=== PATIENT | female | born 1990 | race Caucasian/White ===

== ENCOUNTER 2018-09-07 00:27 | Inpatient (IN) | payer MEDICAID ==
[~2018-09-07] VITALS: Ht 165.1 cm; Wt 81.6 kg
[2018-09-07] MEDS ORDERED: SODIUM CHLORIDE 0.9% 1,000 ML IV ONE ×2 (01:43→03:00)
[2018-09-07] MEDS ORDERED: ONDANSETRON HCL 4MG/2ML INJ IV STA (01:43)
[2018-09-07] MEDS ORDERED: MORPHINE SULFATE 10 MG/ML CPJ IV ONE (01:45)
[2018-09-07] MEDS ORDERED: DIPHENHYDRAMINE 50MG/ML VIAL IV ONE (03:00)
[2018-09-07] MEDS ORDERED: PANTOPRAZOLE SODIUM 40 MG/VIAL IV ONE (03:30)
[2018-09-07] MEDS ORDERED: METOCLOPRAMIDE HCL 10MG/2ML VIAL IV ONE (03:30)
[2018-09-07 04:10] LABS: HEMATOCRIT. 41.5 % (36.0-48.0); HEMOGLOBIN. 12.5 g/dL (12.0-16.0); MEAN CORPUSCULAR HEMOGLOBIN 30.1 pg (28.0-32.0); MEAN CORPUSCULAR VOLUME 100.2 fL (81.0-99.0); MEAN PLATELET VOLUME 7.7 fl (7.4-10.4); PLATELET 424 x1000/uL (130-400); RED BLOOD CELL COUNT 4.15 mill/uL (4.2-5.4); RED CELL DISTRIBUTION WIDTH 14.7 % (11.6-14.6)
[2018-09-07 04:16] LABS: CHLORIDE 99 mEq/L (98-107)
[2018-09-07 04:20] LABS: PROTHROMBIN TIME 10.1 sec (9.1-11.1)
[2018-09-07 04:41] LABS: HCG SCREEN NEGATIVE
[2018-09-07] MEDS ORDERED: INSULIN REGULAR (DRIP) 100 UNITS in SODIUM CHLORIDE 0.9% 100 ML IV ONE (04:48)
[2018-09-07 05:07] LABS: PHOSPHORUS 3.5 mg/dL (2.5-4.9)
[2018-09-07 06:59] LABS: PLATELET ESTIMATE SLIGHTLY INCREASED
[2018-09-07] MEDS ORDERED: INSULIN REGULAR (DRIP) 100 UNITS in SODIUM CHLORIDE 0.9% 100 ML IV SCH (12:32)
[2018-09-07] MEDS ORDERED: IPRATROPIUM/ALBUTEROL 0.5-3(2.5)MG/3ML NEB INH PRN (12:45)
[2018-09-07] MEDS ORDERED: ZOLPIDEM TARTRATE 5MG TABLET PO PRN (12:45)
[2018-09-07] MEDS ORDERED: DOCUSATE SODIUM 100MG CAPSULE PO PRN (12:45)
[2018-09-07] MEDS ORDERED: ACETAMINOPHEN 325MG TABLET PO PRN (12:45)
[2018-09-07] MEDS ORDERED: LORAZEPAM 1MG TABLET PO PRN (12:45)
[2018-09-07] MEDS ORDERED: BLOOD SUGAR DIAGNOSTIC STRIP TEST SCH (12:45)
[2018-09-07] MEDS ORDERED: NA PHOS,M-B/NA PHOS,DI-BA ENEMA 118ML PR PRN (12:45)
[2018-09-07] MEDS ORDERED: CLONIDINE 0.1MG TABLET PO PRN (12:45)
[2018-09-07] MEDS ORDERED: DEXTROSE 50% WATER 50ML SYRINGE IV PRN ×4 (12:45→21:30)
[2018-09-07] MEDS ORDERED: NITROGLYCERIN 0.4MG TABLET SL SL PRN (12:45)
[2018-09-07] MEDS ORDERED: ONDANSETRON HCL 4MG/2ML INJ IV PRN (12:45)
[2018-09-07] MEDS ORDERED: GUAIFENESIN 200MG/10ML SUGAR FREE UDC PO PRN (12:45)
[2018-09-07] MEDS ORDERED: MAGNESIUM/ALUMINUM HYDROXIDE/SIMETHICONE 30ML UDC PO PRN (12:45)
[2018-09-07] MEDS ORDERED: KETOROLAC 15MG/ML VIAL IV PRN (12:45)
[2018-09-07 16:07] LABS: COLOR URINE YELLOW (YELLOW); KETONES URINE 4+ (NEGATIVE); LEUKOCYTE ESTERASE URINE NEGATIVE (NEGATIVE); NITRITE URINE NEGATIVE (NEGATIVE); OCCULT BLOOD URINE TRACE (NEGATIVE); PH URINE 5.5 (4.5-8.0); PROTEIN URINE 1+ (NEGATIVE); SPECIFIC GRAVITY URINE 1.017 (1.005-1.030); UROBILINOGEN URINE 0.2 E.U./dL (0.2-1.0)
[2018-09-07 16:10] LABS: *AMPHETAMINES SCREEN URINE NEGATIVE (NEGATIVE)
[2018-09-07 16:11] LABS: *BARBITURATES SCREEN URINE NEGATIVE (NEGATIVE); *BENZODIAZEPINES SCREEN URINE NEGATIVE (NEGATIVE); *COCAINE SCREEN URINE NEGATIVE (NEGATIVE); METHADONE URINE SCREEN NEGATIVE (NEGATIVE); PHENCYCLIDINE URINE SCREEN NEGATIVE (NEGATIVE)
[2018-09-07 16:11] LABS: CLARITY URINE CLEAR (CLEAR)
[2018-09-07 16:12] LABS: CANNABINOID URINE SCREEN NEGATIVE (NEGATIVE)
[2018-09-07 16:17] LABS: OPIATES URINE SCREEN PRESUMTIVE POSITIVE (NEGATIVE)
[2018-09-07 17:05] LABS: *AMPHETAMINES SCREEN URINE NEGATIVE (NEGATIVE); *BARBITURATES SCREEN URINE NEGATIVE (NEGATIVE); *BENZODIAZEPINES SCREEN URINE NEGATIVE (NEGATIVE)
[2018-09-07 17:06] LABS: *COCAINE SCREEN URINE NEGATIVE (NEGATIVE); CANNABINOID URINE SCREEN NEGATIVE (NEGATIVE); METHADONE URINE SCREEN NEGATIVE (NEGATIVE); OPIATES URINE SCREEN PRESUMTIVE POSITIVE (NEGATIVE); PHENCYCLIDINE URINE SCREEN NEGATIVE (NEGATIVE)
[2018-09-07 21:00] VITALS: BP 125/75
[2018-09-07 21:00] LABS: CHLORIDE 112 mEq/L (98-107)
[2018-09-07] MEDS ORDERED: SODIUM CHLORIDE 0.9% 1,000 ML IV SCH (21:00)
[2018-09-07 21:07] LABS: PHOSPHORUS 1.7 mg/dL (2.5-4.9)
[2018-09-07] MEDS ORDERED: INSULIN REGULAR (DRIP) 100 UNITS in SODIUM CHLORIDE 0.9% 99 ML IV SCH (21:21)
[2018-09-07 22:00] VITALS: BP 92/44
[2018-09-07] MEDS: BLOOD SUGAR DIAGNOSTIC STRIP TEST SCH ×2 (22:05→22:56)
[2018-09-07] MEDS: DEXT 5%/0.9% NACL 1,000 ML IV SCH (22:15)
[2018-09-07 23:00] VITALS: BP 96/54
[2018-09-07] MEDS ORDERED: SODIUM PHOS,M-BASIC-D-BASIC 20 MM in DEXT 5% WATER 243.3333 ML IV NR (23:00)
[2018-09-08] VITALS (23 sets, daily range): BP systolic 93–155; BP diastolic 43–95
[2018-09-08] MEDS: BLOOD SUGAR DIAGNOSTIC STRIP TEST SCH ×14 (00:28→21:40)
[2018-09-08 06:09] LABS: CHLORIDE 112 mEq/L (98-107)
[2018-09-08 06:15] LABS: PHOSPHORUS 2.5 mg/dL (2.5-4.9)
[2018-09-08] MEDS: DEXT 5%/0.9% NACL 1,000 ML IV SCH (07:01)
[2018-09-08 07:53] LABS: BASOPHILS % 0.3 % (0.0-2.0); EOSINOPHILS % 0.1 % (0.0-5.0); HEMOGLOBIN. 9.7 g/dL (12.0-16.0); MEAN CORPUSCULAR HEMOGLOBIN 29.1 pg (28.0-32.0); MEAN CORPUSCULAR VOLUME 89.9 fL (81.0-99.0); MEAN PLATELET VOLUME 7.1 fl (7.4-10.4); MONOCYTES % 6.2 % (2.0-8.0); NEUTROPHILS % 75.4 % (40.0-76.0); PLATELET 379 x1000/uL (130-400); RED BLOOD CELL COUNT 3.34 mill/uL (4.2-5.4)
[2018-09-08] MEDS ORDERED: DEXTROSE 50% WATER 50ML SYRINGE IV PRN (09:00)
[2018-09-08] MEDS: METOCLOPRAMIDE HCL 10MG/2ML VIAL IV SCH (09:41)
[2018-09-08] MEDS: PANTOPRAZOLE SODIUM 40 MG/VIAL IV SCH (09:41)
[2018-09-08] MEDS ORDERED: INSULIN GLARGINE UD 100 UNITS/ML SYR SUBCUT SCH (10:00)
[2018-09-08] MEDS ORDERED: POTASSIUM PHOS,M-BASIC-D-BASIC 10 MMOL in DEXT 5% WATER 246.6667 ML IV SCH (10:00)
[2018-09-08] MEDS: INSULIN LISPRO 100 UNITS/ML SUBCUT SCH ×5 (13:00→21:55)
[2018-09-09] VITALS (12 sets, daily range): BP systolic 93–138; BP diastolic 64–82
[2018-09-09 05:35] LABS: CHLORIDE 105 mEq/L (98-107)
[2018-09-09 05:38] LABS: BASOPHILS % 0.3 % (0.0-2.0); EOSINOPHILS % 0.8 % (0.0-5.0); HEMATOCRIT. 29.2 % (36.0-48.0); HEMOGLOBIN. 9.7 g/dL (12.0-16.0); LYMPHOCYTES % 31.1 % (20.0-50.0); MEAN CORPUSCULAR HEMOGLOBIN 29.6 pg (28.0-32.0); MEAN CORPUSCULAR VOLUME 89.5 fL (81.0-99.0); MEAN PLATELET VOLUME 7.1 fl (7.4-10.4); MONOCYTES % 7.2 % (2.0-8.0); NEUTROPHILS % 60.6 % (40.0-76.0); PLATELET 298 x1000/uL (130-400); RED BLOOD CELL COUNT 3.26 mill/uL (4.2-5.4); RED CELL DISTRIBUTION WIDTH 13.8 % (11.6-14.6)
[2018-09-09 05:49] LABS: PHOSPHORUS 2.2 mg/dL (2.5-4.9)
[2018-09-09] MEDS: BLOOD SUGAR DIAGNOSTIC STRIP TEST SCH (08:04)
[2018-09-09] MEDS: PANTOPRAZOLE SODIUM 40 MG/VIAL IV SCH (08:12)
[2018-09-09] MEDS: METOCLOPRAMIDE HCL 10MG/2ML VIAL IV SCH (08:12)
[2018-09-09] MEDS: INSULIN LISPRO 100 UNITS/ML SUBCUT SCH ×2 (08:13→08:14)
[2018-09-09] MEDS ORDERED: INSULIN GLARGINE UD 100 UNITS/ML SYR SUBCUT SCH (10:30)
== END 2018-09-09 12:45 | disposition home or self-care (01) | DRG 420 ==
LOC: ER 00:27 → EDBEDREQSVC 04:54 → EDBEDREQTM 04:54 → EDBEDREQ 04:54 → CVICU 04:55 → EDBEDREQTM 05:03 → EDBEDREQ 05:03 → ENRESERV 09:59
PROVIDERS: ADMIT Internal Medicine; ATTEND Internal Medicine
DX: E11.10 Type 2 diabetes mellitus with ketoacidosis without coma (principal); D72.829 Elevated white blood cell count, unspecified; F17.210 Nicotine dependence, cigarettes, uncomplicated; Z91.11 Patient's noncompliance with dietary regimen; Z91.14 Patient's other noncompliance with medication regimen; Z88.0 Allergy status to penicillin
CPT/HCPCS: 36415; 80048; 80305; 82010; 82962; 83735; 84100; 84703; 86850; 86900; 96361; 96374; 96375; 96376; 99291; C9113; J1200; J1815; J1885; J2270; J2405; J2765; J3490; J7030; J7042; J7050; J7060; A4315